=== PATIENT | female | born 1985 | race Caucasian/White ===

== ENCOUNTER → 2019-12-14 | Outpatient (CLI) | payer SELFPAY ==
[~2019-12-14] MED LIST: CATHETER FLUSH 10 ML SYR IV PRN; HOLD METFORMIN - RECEIVED CONTRAST 20 ML VIAL IV SCH; IOHEXOL 350 MG/ML 100 ML (OMNIPAQUE 350) VIAL IV ONE; NS 100 ML (IVPB) BAG IV ONE
--- NOTE | 2019-12-14 14:18 | Diagnostic Imaging Report ---
PROCEDURE: CT abdomen and pelvis with contrast. TECHNIQUE: Multiple contiguous axial images were obtained through the abdomen and pelvis after administration of intravenous contrast. Auto Exposure Controls were utilized during the CT exam to meet ALARA standards for radiation dose reduction. INDICATION: Right-sided posterior abdominal pain radiating to the front for 24 hours. COMPARISON: No prior studies are available for comparison. FINDINGS: The lung bases are clear. Liver is unremarkable. The gallbladder is unremarkable. No biliary ductal dilatation is identified. The pancreas and spleen are unremarkable. No adrenal mass is detected. Kidneys are unremarkable. There is no hydronephrosis. Aorta is nonaneurysmal. The small and large bowel loops appear to be normal caliber. There is no obstruction. Appendix is visualized in the right lower quadrant and appears unremarkable. No inflammatory changes are seen. There is no free fluid or fluid collection. Uterus and bladder are unremarkable. Bony structures are nonacute. IMPRESSION: Unremarkable CT of the abdomen and pelvis. No acute feature is detected. Dictated by: Dictated on workstation # [id number]
== END ==
LOC: RAD 13:40
PROVIDERS: ATTEND Nurse Practitioner Family
DX: R10.31 Right lower quadrant pain (principal)
CPT/HCPCS: 74177

== ENCOUNTER → 2021-04-07 | Outpatient (CLI) | payer OTHER ==
[~2021-04-07] VITALS: Ht 160 cm; Wt 86.4 kg
[~2021-04-07] MED LIST changes: +ACETAMINOPHEN 500 MG TAB (TYLENOL) PO PRN; +CASIRIVIMAB/IMDEVIMAB 1,200 MG in NS (IVPB) 250 ML IV ONE; -CATHETER FLUSH 10 ML SYR IV PRN; +EPINEPHrine INJECTION 1 MG/ML AMP IM PRN; -HOLD METFORMIN - RECEIVED CONTRAST 20 ML VIAL IV SCH; -IOHEXOL 350 MG/ML 100 ML (OMNIPAQUE 350) VIAL IV ONE; -NS 100 ML (IVPB) BAG IV ONE; +ONDANSETRON 4 MG/2 ML (SDV) Z0FRAN IV PRN; +diphenhydrAMINE 50 MG/ML INJ (BENADRYL) IV PRN
[2021-04-07 12:13] VITALS: BP 120/70
[2021-04-07 13:58] VITALS: BP 100/64
== END ==
LOC: INFUSION 12:04
PROVIDERS: ATTEND Nurse Practitioner Family
DX: U07.1 COVID-19 (principal)